=== PATIENT | male | born 1970 | race Caucasian/White ===

== ENCOUNTER 2025-04-19 18:24 | Emergency (ER) | payer OTHER ==
--- NOTE | 2025-04-19 18:31 | ERPHSYRPT ---
- History of Present Illness Time Seen by Provider: 04/19/25 18:31 Source: patient Exam Limitations: no limitations Physician History: patient presents with L lower leg injury from a chainsaw. active bleeding with belt used as a tourniquet. wound is very painful. patient feels a bulge when he walks. Timing/Duration: today Quality: painful Severity: moderate Location: extremities (LLE) Possible Causes: other (chainsaw) Allergies/Adverse Reactions: Sulfa (Sulfonamide Antibiotics) Allergy (Severe, Verified 04/19/25 18:36) Hives latex Allergy (Unknown, Verified 04/19/25 18:36) soybean Allergy (Unknown, Verified 04/19/25 18:36) Home Medications: Rosuvastatin Calcium 10 mg PO HS 01/01/23 [History] ALPRAZolam 1 MG [Xanax 1 mg] 1 mg PO QID 09/28/23 [History] Albuterol 8 gm Mdi Hfa [Ventolin Hfa MDI] 2 puffs IH Q6H PRN PRN 09/28/23 [History] Amlodipine Besylate 5 mg [Norvasc 5 mg] 5 mg PO HS 09/28/23 [History] Cariprazine HCl [Vraylar] 1.5 mg PO HS 09/28/23 [History] D3/E/Se/Soy Isofl/Tocoph/Lycop [Prostate 2.4 Capsule] 1 tab PO HS 09/28/23 [History] Fluticasone/Umeclidin/Vilanter [Trelegy Ellipta 100-62.5-25] 1 puff IH DAILY 09/28/23 [History] Lactobacillus Combo No.11 [Probiotic] 1 tab PO HS 09/28/23 [History] Losartan/Hydrochlorothiazide [Losartan-Hctz 50-12.5 mg Tab] 1 tab PO DAILY 09/28/23 [History] Magnesium Hydroxide 30 ml [Milk of Magnesia 30 ml] 30 ml PO HS 09/28/23 [History] Omeprazole Magnesium [Prilosec Otc] 20 mg PO HS 09/28/23 [History] tadalafiL [Cialis] 20 mg PO UD 09/28/23 [History] Betamet Acet/Betamet Na pH [Celestone Soluspan 6MG/ML] 6 mg .ROUTE UD 06/11/24 [History] Fluticasone/Umeclidin/Vilanter [Trelegy Ellipta 200-62.5-25] 1 - 2 puffs NEB UD 06/11/24 [History] Lactulose 15 ml PO UD 06/11/24 [History] Testosterone 1 pump TD UD 06/11/24 [History] predniSONE [Prednisone] 20 mg PO UD 06/11/24 [History] - Review of Systems All Other Systems: Reviewed and Negative - Past Medical History Pertinent Past Medical History: Yes Neurological History: No Pertinent History ENT History: Glaucoma Cardiac History: Hypertension Respiratory History: No Pertinent History Endocrine Medical History: No Pertinent History Musculoskeletal History: No Pertinent History GI Medical History: No Pertinent History History: No Pertinent History Psycho-Social History: Bipolar Male Reproductive Disorders: No Pertinent History - Past Surgical History Past Surgical History: Yes Neuro Surgical History: No Pertinent History Cardiac: No Pertinent History Respiratory: No Pertinent History Gastrointestinal: Hernia Repair Genitourinary: No Pertinent History Musculoskeletal: No Pertinent History Male Surgical History: No Pertinent History Other Surgical History: hemorrhoidectomy, - Social History Drug Use: none - Nursing Vital Signs Nursing Vital Signs: Initial Vital Signs Temperature 97.1 F 04/19/25 18:26 Pulse Rate 105 H 04/19/25 18:26 Respiratory Rate 18 04/19/25 18:26 Blood Pressure 133/100 04/19/25 18:26 O2 Sat by Pulse Oximetry 96 04/19/25 18:26 Pain Scale Pain Intensity 0 - Physical Exam General Appearance: mild distress Neurologic Exam: alert, oriented x 3, cooperative, sensation nml, No motor deficits SpO2 Interpretation: normal O2 Delivery: Room Air Comments: L lower extremity complex laceration medial to tibia, muscle protruding through laceration with extensive debris once tourniquet released no arterial bleeding noticed wound extensively irrigated and debrided, no obvious tendon or nerve injury identified motor and sensory function below intact Procedures - Laceration/Wound Repair Left Lower Anterior Medial Calf Time of Procedure: 18:45 Wound Location: Left, lower leg Wound Length (cm): 8.5 Wound's Depth, Shape: into muscle Wound Explored: foreign body removed Irrigated: Yes Hibiclens Prep: Yes Anesthesia: 1% Lidocaine Volume Anesthetic (ccs): 28 Wound Debrided: extensive Sterile Dressing Applied?: Yes Progress: wet to dry packing of the wound with kourtney bandage for compression - Course Nursing assessment & vital signs reviewed: Yes Ordered Tests: Active Orders 24 hr Category Date Time Status LOWER LEG Stat Exams 04/19/25 18:57 Taken CBC W DIFF Stat Lab 04/19/25 18:47 Completed CMP Stat Lab 04/19/25 18:47 Completed ETHYL ALCOHOL Stat Lab 04/19/25 18:47 Completed Medication Summary Discontinued Medications Generic Name Dose Route Start Last Admin Trade Name Ashlee PRN Reason Stop Dose Admin Hydrocodone Bitart/Acetaminophen 2 tab 04/19/25 19:37 04/19/25 19:49 Hydrocodone/Apap 5/325 1 Tab Tablet PO 04/19/25 19:38 2 tab SENT HOME W/ PATIENT ONE Administration Hydrocodone Bitart/Acetaminophen Confirm 04/19/25 19:46 Hydrocodone/Apap 5/325 1 Tab Tablet Administered 04/19/25 19:47 Dose 2 tab .ROUTE .STK-MED ONE Cephalexin HCl 500 mg 04/19/25 19:37 04/19/25 19:49 Cephalexin Mh500 Mg Capsule PO 04/19/25 19:38 500 mg STAT ONE Administration Cephalexin HCl Confirm 04/19/25 19:46 Cephalexin Mh500 Mg Capsule Administered 04/19/25 19:47 Dose 500 mg .ROUTE .STK-MED ONE Diphtheria/Tetanus/Acell Pertussis 0.5 ml 04/19/25 19:44 04/19/25 19:49 Tdap --Diph,Pertuss(Acell),Tet Vac/Pf 0.5 Ml Vial IM 04/19/25 19:45 0.5 ml .ONCE ONE Administration Diphtheria/Tetanus/Acell Pertussis Confirm 04/19/25 19:47 Tdap --Diph,Pertuss(Acell),Tet Vac/Pf 0.5 Ml Vial Administered 04/19/25 19:48 Dose 0.5 ml IM .STK-MED ONE Fentanyl Citrate 25 mcg 04/19/25 18:30 04/19/25 19:43 Fentanyl Citrate 100 Mcg/2 Ml* Vial IV 04/19/25 18:31 Not Given STAT ONE Lab/Rad Data: Laboratory Result Diagrams 04/19/25 18:47 10/12/25 18:47 Laboratory Results 04/19/25 04/19/25 04/19/25 Range/Units 18:47 18:47 18:47 WBC 10.2 H (4.23-9.07) x10^3/uL RBC 4.66 (4.63-6.08) x10^6/uL Hgb 13.9 (13.7-17.5) g/dL Hct 41.8 (40.1-51.0) % MCV 89.7 (79.0-92.2) fL MCH 29.8 (25.7-32.2) pg MCHC 33.3 (32.3-36.5) g/dL RDW 12.7 (11.6-14.4) % Plt Count 314 (163-337) x10^3/uL MPV 9.1 L (9.4-12.4) fL Gran % 62.7 (34.0-67.9) % Immature Gran % (Auto) 0.3 (0.001-0.429) % Nucleat RBC Rel Count 0.0 (0.00-0.2) % Eos # (Auto) 0.16 (0.04-0.54) x10^3/uL Immature Gran # (Auto) 0.03 (0.001-0.031) x10^3u/L Absolute Lymphs (auto) 2.65 (1.32-3.57) x10^3/uL Absolute Monos (auto) 0.91 H (0.30-0.82) x10^3/uL Absolute Nucleated RBC 0.00 (0.00-0.012) x10^3u/L Lymphocytes % 25.9 (21.8-53.1) % Monocytes % 8.9 (5.3-12.2) % Eosinophils % 1.6 (0.8-7.0) % Basophils % 0.6 (0.2-1.2) % Absolute Granulocytes 6.41 H (1.78-5.38) x10^3/uL Basophils # 0.06 (0.01-0.08) x10^3/uL Sodium 139 (135-145) mmol/L Potassium 4.5 (3.5-5.1) mmol/L Chloride 107 (98-107) mmol/L Carbon Dioxide 23 (22-30) mmol/L Anion Gap 13.3 (5-15) MEQ/L BUN 21 H (9-20) mg/dL Creatinine 1.10 (0.66-1.25) mg/dL Estimated GFR 79.3 ML/MIN Glucose 99 (74-106) mg/dL Calcium 9.1 (8.4-10.2) mg/dL Total Bilirubin 0.50 (0.2-1.3) mg/dL AST 39 (17-59) U/L ALT 23 (0-50) U/L Alkaline Phosphatase 77 (38-126) U/L Serum Total Protein 7.6 (6.3-8.2) g/dL Albumin 4.6 (3.5-5.0) g/dL Ethyl Alcohol 41 H (0-10) mg/dL ABO Group O Rh Factor POSITIVE Antibody Screen NEGATIVE (NEGATIVE) - Progress Progress: improved Progress Note: wound debrided, extensive debris in wound. patient would benefit from surgical washout and debridement. Dr. Pennington recommends transfer to facility with vascular available. Discussed with Dr. Nettles who recommends wet to dry packing with compression. Started on Keflex. [place] sent home with patient. Tdap updated today. Patient to be NWB with crutches. Follow up with Dr. Trivedi in the morning at [facility]. NPO after midnight. Discussed with Dr.: Ashley (Ortho), Other (Dr. Nettles) Counseled pt/family regarding: lab results, diagnosis, need for follow-up, rad results Medical Desision Making - Discussion of managment Care discussed with:: specialist Reviewed:: Need for additional workup Agreed on:: Treatment plan - Diagnostic Testing Diagnostic test were ordered, analyzed, and reviewed by me: Yes Radiological Interpretation: Interpreted by me - Risk of complications The pt has a mod risk of morbidity or mortality based on: Need for prescription drug management - Departure Departure Disposition: Home Clinical Impression: Laceration of left lower leg, Contact with chainsaw as cause of accidental injury Condition: Stable Critical Care Time: No Referrals: ZHANNA PHIPPS NP [Primary Care Provider, [facility]] - Follow up/PCP as directed CORNELIUS TRIVEDI MD [COURTESY STAFF, ORTHOPEDICS] - Follow up/PCP as directed Instructions: Wound care - ED discharge instructions Prescriptions: Hydrocodone/Acetaminophen [Hydrocodone-Acetamin 5-325 mg] 1 tab PO Q4HPRN PRN 3 Days #18 tablet MDD 6 PRN Reason: Pain Cephalexin Mh 500 mg [Keflex 500 mg] 500 mg PO TID 7 Days #21 cap
[2025-04-19 18:36] VITALS: TEMP 97.1
[2025-04-19 18:52] LABS: BASOPHIL % 0.6 % (0.2-1.2); Basophil (Absolute #) 0.06 x10^3/uL (0.01-0.08); Eosinophil (Absolute #) 0.16 x10^3/uL (0.04-0.54); Hematocrit 41.8 % (40.1-51.0); Hemoglobin 13.9 g/dL (13.7-17.5); IMMATURE GRAN # 0.03 x10^3u/L (0.001-0.031); IMMATURE GRAN % 0.3 % (0.001-0.429); Lymphocyte (Absolute #) 2.65 x10^3/uL (1.32-3.57); Mean Corpuscular Hemoglobin 29.8 pg (25.7-32.2); Mean Corpuscular Hgb Concent. 33.3 g/dL (32.3-36.5); Monocyte (Absolute #) 0.91 x10^3/uL (0.30-0.82); NUCLEATED RBC # 0.00 x10^3u/L (0.00-0.012); NUCLEATED RBC % 0.0 % (0.00-0.2); Platelet Count 314 x10^3/uL (163-337); Red Blood Count 4.66 x10^6/uL (4.63-6.08); White Blood Count 10.2 x10^3/uL (4.23-9.07)
[2025-04-19 19:05] LABS: Calcium 9.1 mg/dL (8.4-10.2); Carbon Dioxide 23.0 mmol/L (22-30); Creatinine 1 1.1 mg/dL (0.66-1.25); EST GLOMERULAR FILTRATION RATE 79.3 ML/MIN; ETHYL ALCOHOL 41.0 mg/dL (0-10); Glucose 99.0 mg/dL (74-106); Potassium 4.5 mmol/L (3.5-5.1); SGOT/AST 39.0 U/L (17-59); SGPT/ALT 23.0 U/L (0-50); Total Protein 7.6 g/dL (6.3-8.2)
[2025-04-19 19:43] LABS: ABO TYPING O; RH TYPING POSITIVE
[2025-04-19] MEDS: SUBLIMAZE 100 MCG/2 ML IV ONE (19:43)
[2025-04-19] MEDS ORDERED: KEFLEX 500 MG ONE (19:46)
[2025-04-19] MEDS ORDERED: NORCO 5/325 MG ONE (19:46)
[2025-04-19] MEDS ORDERED: Adacel Vial IM ONE (19:47)
[2025-04-19] MEDS: NORCO 5/325 MG PO ONE (19:49)
[2025-04-19] MEDS: Adacel Vial IM ONE (19:49)
[2025-04-19] MEDS: KEFLEX 500 MG PO ONE (19:49)
[2025-04-19 20:05] VITALS: BP 141/78; PULSE 98; RESP 15; O2SAT 98
--- NOTE | 2025-04-19 22:53 | XRAY ---
Indication: Chainsaw injury/laceration. Comparison: None 2 view left lower leg demonstrates large laceration midleg posterior medially. No other bony, articular, or soft tissue abnormalities.
== END 2025-04-19 20:05 | disposition home or self-care (01) ==
LOC: ED 18:24
DX: S81.812A Laceration without foreign body, left lower leg, initial encounter (principal); W29.3XXA Contact with powered garden and outdoor hand tools and machinery, initial encounter; I10 Essential (primary) hypertension; Z79.899 Other long term (current) drug therapy; Z23 Encounter for immunization